=== PATIENT | female | born 1960 | race Hispanic/Latino ===

== ENCOUNTER 2016-10-14 12:09 | Emergency (ER) | payer OTHER ==
[2016-10-14] MEDS ORDERED: LORazepam 2 MG/ML INJ ONE (12:28)
[2016-10-14] MEDS ORDERED: ONDANSETRON HCL 4 MG/2 ML VIAL ONE ×2 (13:01→13:29)
--- NOTE | 2016-10-14 14:02 | ER NURSING DOCUMENTATION ---
Nurse's Notes [facility] Name:Chelle Haile Age:56 yrs Sex:Female :1960 Arrival Date:10/14/2016 Time:12:09 Bed5 Private MD: Diagnosis:Adjustment Disorder with Anxiety Presentation: 10/14 12:10 Acuity: LAUREN 3 lc 12:16 Presenting complaint: Patient states: pt has had four episodes of SOB, Nausea and hands st tingling today after a hard discussion with her daughter. Pt tried to use THC to "help setal my nerves" but it did not help. Transition of care: Home. 12:16 Method Of Arrival: EMS: 410 st Triage Assessment: 12:18 General: Appears uncomfortable, Behavior is cooperative. Pain: Denies pain. st Cardiovascular: No deficits noted. Respiratory: Airway is patent Respiratory effort is even, Respiratory pattern is hyperventilation Reports shortness of breath numbness in her hands. GI: Reports nausea. Historical: - Allergies: No known drug Allergies; - Home Meds: 1. None - PMHx: None; - PSHx: tubes tied; - Tetanus: < 10 years. - Ebola Screening: : Patient denies exposure to infectious person. Patient denies travel to an Ebola-affected area in the 21 days before illness onset. . - Immunization history: Pneumococcal vaccine status is unknown. - Social history: Smoking status: unknown if patient ever smoked tobacco. Patient uses alcohol marijuana. Screenin:20 Infectious Disease Risk None. Abuse screen: Denies threats or abuse. Denies injuries st from another. Nutritional screening: No deficits noted. Assessment: 12:34 General: pt breathing has slowed down. pt seems more relaxed. pt states she still feels st bad and still feels nauseated. . 13:18 General: pt resting quietly. pt states her SOB and hands are better however she states st she feels weak and naseated.. Vital Signs: 12:10 BP 137 / 87 LA Supine (auto/reg); Pulse 88 LA; Resp 24 S; Temp 98.4(O); Pulse Ox 100% em3 on R/A; Weight 63.5 kg (R); Height 5 ft. 3 in. (160.02 cm) (R); Pain 0/10; 12:34 Pulse 89; Pulse Ox 92% on R/A; st 12:10 Body Mass Index 24.80 (63.50 kg, 160.02 cm) em3 ED Course: 12:09 Patient arrived in ED. arc 12:10 Triage completed. lc 12:11 Charlotte Anthony RN is Primary Nurse. st 12:13 Valuables Remains with patient Patient has correct armband on for positive em3 identification. Bed in low position. Call light in reach. Side rails up X2. 12:25 Lucio Aragon MD is Attending Physician. tl1 12:26 Pulse Ox - RN Monitoring Only NIBP On - RN Monitoring Only. Door closed. Noise st minimized. Visitors limited. Lights dimmed. 12:53 Diet: Patient given ice chips. st 13:51 [facility] is Referral Physician. tl1 Administered Medications: 12:16 Drug: Ativan 1 mg; Route: IVP; Site: right hand; st 13:18 Follow up: Response: pt relaxing st 12:49 Drug: Zofran 4 mg; Route: IVP; Infused Over: 2 mins; Site: right hand; st 13:18 Follow up: Response: Nausea unchanged st 13:17 Drug: Zofran 4 mg; Route: IVP; Infused Over: 2 mins; Site: right antecubital; st 14:00 Follow up: Response: Nausea is decreased st 14:00 Not Given (not needed): Ativan [address] Outcome: 13:52 Discharge ordered by . tl1 14:00 Discharged to home ambulatory. st 14:00 Condition: improved 14:00 Discharge instructions given to patient, Instructed on discharge instructions, follow up and referral plans. medication usage, Prescriptions given X 1. 14:[address] 0716 12:23 Discharge F/U Call: Unable to reach: left voicemail: rosemary Signatures: Charlotte Anthony RN RN st Coleman, Linda, RN RN lc Meiklejohn, Eric em3 Lucio Aragon MD MD tl1 Rosemary Francisco, Eloy Reg Heather Ventura
--- NOTE | 2016-10-14 14:02 | ER PHYSICIAN DOCUMENTATION ---
Physician Documentation [facility] Name:Chelle Haile Age:56 yrs Sex:Female :1960 Arrival Date:10/14/2016 Time:12:09 Bed5 Private MD: Lucio Nascimento Disposition: 10/15 18:49 Chart complete. tl1 Disposition: 10/14/16 13:52 Discharged to Home/Self Care. Impression: Adjustment Disorder with Anxiety. - Condition is Good. - Discharge Instructions: ANXIETY REACTION. - Prescriptions for Ativan 0.5 mg Oral - take 1 tablet by ORAL route every 8 hours As needed; 12 tablet. - Medical Reconciliation form form. - Follow up: [facility]; When: 2 - 3 days; Reason: Recheck today's complaints, Continuance of care. - Problem is new. - Symptoms have improved. HPI: 10/14 12:27 This 56 yrs old Female presents to ER via EMS with complaints of Anxiety. tl1 12:27 She has been under a lot of emotional stress recently with issues related to work and tl1 family. This morning she was talking to her daughter about her daughter's recent diagnosis of a large uterine fibroid. She began to breath heavily and develoepd tingling in her bilateal hands and around the mouth. She became very anxious and called medics. She denies CP, cough, hemoptysis, LE pain or swelling, RF for DVT/PE. When she started feeling anxious, she smoked some marijuana this AM but denied alcohol . Historical: - Allergies: No known drug Allergies; - Home Meds: 1. None - PMHx: None; - PSHx: tubes tied; - Tetanus: < 10 years. - Ebola Screening: : Patient denies exposure to infectious person. Patient denies travel to an Ebola-affected area in the 21 days before illness onset. . - Immunization history: Pneumococcal vaccine status is unknown. - Social history: Smoking status: unknown if patient ever smoked tobacco. Patient uses alcohol marijuana. ROS: 12:35 Constitutional: Positive for fatigue, malaise, Negative for chills, fever. tl1 12:35 Eyes: Negative for 12:35 ENT: Negative for sinus pain. 12:35 Neck: Negative for pain with movement, stiffness, swollen nodes, tenderness. 12:35 Cardiovascular: Negative for chest pain, edema, orthopnea, palpitations. 12:35 Respiratory: Positive for shortness of breath, Negative for dyspnea on exertion, orthopnea, pleurisy, sputum production. 12:35 MS/extremity: Negative for pain, swelling, tenderness. 12:35 All other systems are negative. Exam: 12:41 Constitutional: The patient appears in no acute distress, alert. tl1 12:41 Head/face: Exam is negative for acute changes. 12:41 Eyes: Exam is negative for acute changes. 12:41 ENT: Exam is negative for acute changes. 12:41 Cardiovascular: Rate: normal, Rhythm: regular, Heart sounds: normal. 12:41 Respiratory: the patient does not display signs of respiratory distress, Respirations: normal, Breath sounds: are normal, rales, rhonchi, wheezing, bronchial sounds. 12:41 Abdomen/GI: Inspection: abdomen appears normal, Palpation: soft, nontender. 12:41 Skin: Exam negative for acute changes. 12:41 Neuro: Exam negative for acute changes. 12:41 Psych: Behavior/mood is pleasant, cooperative, anxious, depressed, Affect is flat, Oriented to person, place, time, Patient has no thoughts/intents to harm self or others. Judgement / Insight is normal. Memory is normal. Delusions/hallucinations are not present. Vital Signs: 12:10 BP 137 / 87 LA Supine (auto/reg); Pulse 88 LA; Resp 24 S; Temp 98.4(O); Pulse Ox 100% em3 on R/A; Weight 63.5 kg (R); Height 5 ft. 3 in. (160.02 cm) (R); Pain 0/10; 12:34 Pulse 89; Pulse Ox 92% on R/A; st 12:10 Body Mass Index 24.80 (63.50 kg, 160.02 cm) em3 MDM: 12:25 Patient medically screened. tl1 12:48 Differential diagnosis: anxiety. Data reviewed: vital signs, nurses notes, and as a tl1 result, I will discharge patient. Counseling: I had a detailed discussion with the patient and/or guardian regarding: the historical points, exam findings, and any diagnostic results supporting the discharge/admit diagnosis, the need for outpatient follow up, to return to the emergency department if symptoms worsen or persist or if there are any questions or concerns that arise at home. Special discussion: She may be. 13:33 Special discussion: Encouraged her to get help for what appears to be significant tl1 depression with anxiety.. Dispensed Medications: 12:16 Drug: Ativan 1 mg; Route: IVP; Site: right hand; st 13:18 Follow up: Response: pt relaxing st 12:49 Drug: Zofran 4 mg; Route: IVP; Infused Over: 2 mins; Site: right hand; st 13:18 Follow up: Response: Nausea unchanged st 13:17 Drug: Zofran 4 mg; Route: IVP; Infused Over: 2 mins; Site: right antecubital; st 14:00 Follow up: Response: Nausea is decreased st 14:00 Not Given (not needed): Ativan [address] Signatures: Charlotte Anthony, RN RN Lucio Gerardo MD MD tl1
== END 2016-10-14 14:02 | disposition home or self-care (01) ==
LOC: ER 12:09
DX: F43.22 Adjustment disorder with anxiety (principal); R53.83 Other fatigue; R53.81 Other malaise; R06.02 Shortness of breath; Z99.89 Dependence on other enabling machines and devices; Z74.3 Need for continuous supervision
CPT/HCPCS: 96374; 96375; 99283; A0425; A0429; J2060; J2405